=== PATIENT | male | born 1995 | race Caucasian/White ===

== ENCOUNTER 2018-06-02 19:08 | Emergency (ER) | payer SELFPAY ==
[~2018-06-02] VITALS: Ht 177.8 cm; Wt 101.2 kg
== END 2018-06-02 19:36 | disposition home or self-care (01) ==
LOC: ED 19:08
DX: R51 Headache (principal); F17.200 Nicotine dependence, unspecified, uncomplicated; Z88.5 Allergy status to narcotic agent; Z88.8 Allergy status to other drugs, medicaments and biological substances
CPT/HCPCS: 99284